=== PATIENT | male | born 1985 | race Hispanic/Latino ===

== ENCOUNTER 2016-08-10 22:42 | Emergency (ER) | payer OTHER ==
[~2016-08-10] VITALS: Ht 180.3 cm; Wt 97.1 kg
[2016-08-11] MEDS ORDERED: ADACEL/BOOSTRIX VACCINE (DIPHTH/PERTUSS/ACELL/TETANUS)0.5ML SYR (90715) IM ONE (01:00)
[2016-08-11] MEDS ORDERED: LIDOCAINE 1% MDV 20ML VIAL SC ONE (01:00)
[2016-08-11] MEDS ORDERED: AMOXICILLIN 500 MG CAP PO ONE (01:00)
[2016-08-11] MEDS ORDERED: AMOX500C PO (01:50)
[2016-08-11 02:07] VITALS: BP 118/80
--- NOTE | 2016-08-11 08:59 | REP ---
Facial bone series: Six views. History: Possible fracture. Findings: Zygomatic arches are intact. Bony orbital and paranasal sinus margins are intact. No facial fracture is seen. No mandibular fracture is appreciated. The paranasal sinuses are clear. Impression: Negative facial bone series. The nasal bone it should be noted is not well seen in this series. Signed by Akshat Basurto MD 08/11/2016 09:39 A
== END 2016-08-11 02:10 | disposition home or self-care (01) ==
LOC: M ED 23:20
DX: S01.511A Laceration without foreign body of lip, initial encounter (principal); S00.83XA Contusion of other part of head, initial encounter; W50.0XXA Accidental hit or strike by another person, initial encounter; Y92.89 Other specified places as the place of occurrence of the external cause; Y93.67 Activity, basketball; Y99.9 Unspecified external cause status